=== PATIENT | female | born 1995 | race Caucasian/White ===

== ENCOUNTER → 2018-02-25 | Outpatient (CLI) | payer BC | LOC: EDBD → COL.RAD 02-02 09:47 | DX: R10.11 Right upper quadrant pain (principal) | CPT/HCPCS: A9537 ==

== ENCOUNTER 2018-07-05 08:45 | Emergency (ER) | payer BC ==
[~2018-07-05] VITALS: Ht 182.9 cm; Wt 90.9 kg
[2018-07-05 08:53] VITALS: BP 153/77; PULSE 96; TEMP 98.8
[2018-07-05] MEDS ORDERED: MONONESSA 35 MC1 TA1 PO (09:05)
[2018-07-05 09:28] LABS: COLLECTION METHOD CLEAN CATCH
[2018-07-05 09:38] LABS: MUCOUS Present /lpf; PH 6 (5-8); URINE APPEARANCE Hazy; URINE BACTERIA Moderate /hpf; URINE BILIRUBIN Negative (NEGATIVE); URINE BLOOD 1+ (NEGATIVE); URINE COLOR Straw; URINE GLUCOSE Negative (NEGATIVE); URINE KETONE Negative (NEGATIVE); URINE LEUKOCYTE ESTERASE 3+ (NEGATIVE); URINE NITRATE Negative (NEGATIVE); URINE PROTEIN(semi-quant) Negative (NEGATIVE); URINE UROBILINOGEN Negative (NEGATIVE)
[2018-07-05] MEDS ORDERED: NORCO 325 MG-51 TAB PO (11:08)
[2018-07-05] MEDS ORDERED: FLEXERIL 1010 MG/TAB PO (11:08)
[2018-07-05] MEDS ORDERED: OMNICEF 300MG300 MG PO (11:14)
== END 2018-07-05 11:19 | disposition home or self-care (01) ==
LOC: COL.ER 08:45
PROVIDERS: Emergency Medicine
DX: S39.012A Strain of muscle, fascia and tendon of lower back, initial encounter (principal); X50.1XXA Overexertion from prolonged static or awkward postures, initial encounter
CPT/HCPCS: J1885